=== PATIENT | male | born 1975 | race Caucasian/White ===

== ENCOUNTER 2022-01-18 18:24 | Emergency (ER) | payer SELFPAY ==
[2022-01-18 18:57] VITALS: BP 152/87; PULSE 80; RESP 18; TEMP 36.4; O2SAT 100
[2022-01-18 19:10] LABS: Basophils Absolute Auto 0.1 K/mm3 (0.0-0.1); Basophils Percent Auto 1.1 % (0.2-1.2); Eosinophils Absolute Auto 0.9 K/mm3 (0-0.3); Eosinophils Percent Auto 7.5 % (0-4.4); Hematocrit 42.5 % (42.0-52.0); Hemoglobin 14.6 g/dL (14.0-18.0); Immature Granulocyte Absolute 0.03 K/mm3 (0.00-0.031); Immature Granulocyte Percent A 0.2 % (0-0.5); Lymphocytes Absolute Auto 2.25 K/mm3 (0.9-3.2); Lymphocytes Percent Auto 18.7 % (18.3-44.2); Mean Corpuscular HGB Conc 34.4 g/dl (32-36); Mean Corpuscular Hemoglobin 31.7 pg (26-34); Mean Corpuscular Volume 92.2 fl (80-100); Mean Platelet Volume 9.4 fl (7.4-10.4); Monocytes Absolute Auto 0.6 K/mm3 (0.1-0.6); Monocytes Percent Auto 4.7 % (2.6-8.5); Neutrophils Absolute Auto 8.2 K/mm3 (1.3-6.7); Neutrophils Percent Auto 67.8 % (45.5-73.1); Platelet Count Result 375 k/mm3 (150-375); Red Blood Count 4.61 M/mm3 (4.6-6.20); Red Cell Distribution Width 11.7 % (11.5-14.5); White Blood Count 12.1 K/mm3 (4.5-10.0)
[2022-01-18 19:18] LABS: Add Urine Microscopic? YES; Appearance Urine Cloudy (Clear); Bilirubin Urine Negative (Negative); Blood Urine 3+ (Negative); Calcium Oxalate Crystals Urine Present /hpf; Color Urine Yellow (Yellow); Glucose Urine UA Negative (Negative); Ketones Urine Negative (Negative); Leukocyte Esterase Ur Negative LEU/UL (Negative); Mucus Urine Rare /lpf; Nitrate Urine Negative (Negative); Protein Urine 1+ mg/dL (Negative); RBC Urine >75 /hpf (0-2); Specific Grav Ur 1.024 (1.001-1.035); Squamous Epithelial Cell Urine Rare /hpf (Few); Urobilinogen Urine Negative mg/dL (<2.0); WBC Urine 0-3 /hpf
[2022-01-18 19:25] LABS: Alanine Aminotransferase 58 U/L (6-50); Albumin Level 5.1 g/dL (3.5-5.1); Alkaline Phosphatase 43 U/L (38-126); Anion Gap 13 mmol/L (8-16); Aspartate Amino Transferase 42 U/L (17-59); Bilirubin,Total 0.4 mg/dL (0.2-1.3); Blood Urea Nitrogen 11 mg/dL (9-20); Calcium 9.5 mg/dL (8.4-10.2); Carbon Dioxide 22 mmol/L (22-30); Chloride 104 mmol/L (98-107); Estimated CRCL calculation 68 ml/min; Estimated Glomerular Filt Rate > 60; Glucose 156 mg/dL (65-110); Potassium 4.3 mmol/L (3.4-5.0); Sodium 139 mmol/L (137-145)
--- NOTE | 2022-01-18 20:37 | PC.NURSE ---
Patient walked out stating I don't want to wait any longer, I am just going to another hospital.
== END 2022-01-18 20:37 | disposition left against medical advice (07) ==
PROVIDERS: Emergency Provider Emergency Medicine
DX: R10.9 Unspecified abdominal pain (principal)
CPT/HCPCS: 36415; 80053; 81001; 85025; 99199

== ENCOUNTER 2023-01-31 15:23 | Emergency (ER) | payer SELFPAY ==
--- NOTE | ~2023-01-31 | XR_ITS ---
EXAMINATION: XR chest 1V portable Exam Date/Time: 01/31/2023 16:20 CDT HISTORY: Cough X 2 WEEKS Comparison: 07/28/2014. RESULT: Lines, tubes, and devices: None. Lungs and pleura: Clear. Cardiomediastinal silhouette: Stable. Other: No acute osseous or upper abdominal finding. IMPRESSION: No acute cardiopulmonary process. Reviewed, dictated and finalized at location K.
[2023-01-31 15:25] VITALS: BP 160/89; PULSE 86; RESP 16; TEMP 36.6; O2SAT 98
--- NOTE | 2023-01-31 15:57 | ED.GENADULT ---
HPI - General Adult General Chief complaint: Unspecified Stated complaint: COUGH,RASH Time Seen by Provider: 01/31/23 15:45 Source: patient and family Mode of arrival: ambulatory Limitations: no limitations History of Present Illness HPI narrative: 47 years old white male came to the emergency room by private car with his complaining of productive cough of clear sputum for the last 2 weeks. His 2 kids had similar symptoms earlier. Had a negative COVID test yesterday. Patient also complaining of rash on most of his body for the last 24 hours with severe itching. He denies having similar rash or history of allergy in the past. Related Data Allergies Allergy/AdvReac Type Severity Reaction Status Date / Time No Known Allergies Allergy Verified 07/28/14 13:15 Review of Systems Review of Systems: All systems reviewed & are unremarkable except as noted in HPI and below Exam Narrative: General appearance: Well-developed, well-nourished restless because of itching all over Skin: Large area of skin rash tiny red, purple, darker brown spots on the chest abdomen upper extremity and lower extremities and the back. With severe itching. Head: Normocephalic, nontraumatic Eyes: Clear conjunctiva ENT: Oropharynx normal, ears normal, nose normal Neck: Supple, nontender Chest and respiratory: Airway patent, no respiratory distress, no accessory muscle use Heart: Regular rate/rhythm Abdomen: Soft, nontender, no organomegaly, quiet bowel sounds Vascular: Normal peripheral pulses, normal capillary refill. Musculoskeletal: Normal range of motion, nontender back Neurologic: Alert and oriented ?3, [employer] is normal as tested, no gross motor deficit Course Reevaluation(s) Reevaluation #1: Itching improved with epinephrine and prednisone. Date: 01/31/23 Vital Signs Vital signs: Vital Signs Temperature 36.6 C 01/31/23 15:25 Pulse Rate 86 01/31/23 15:25 Respiratory Rate 16 01/31/23 15:25 Blood Pressure 160/89 H 01/31/23 15:25 Pulse Oximetry 98 01/31/23 15:25 Temperature 36.6 C 01/31/23 15:25 Pulse Rate 88 01/31/23 18:00 Respiratory Rate 16 01/31/23 15:25 Blood Pressure 132/79 01/31/23 18:00 Pulse Oximetry 97 01/31/23 18:00 Medical Decision Making [facility] Narrative Medical decision making narrative: Patient been having upper respiratory symptoms for the last 2 weeks, tested negative for COVID yesterday. Patient presented with coughing and rash all over. Rash is nonspecific which could be secondary to COVID. Patient did not check for COVID early. My suspicion that patient had COVID early and the test is negative now. COVID test and chest x-ray today came back within normal limits. Patient received epinephrine, prednisone prior to discharge for the rash. Discharged on doxycycline for possible secondary bacterial infection patient been sick for 2 weeks. Tessalon and prednisone and Zyrtec. Differential Diagnosis Differential Diagnosis: Secondary bacterial infection on top of respiratory viral infection Medical Records Medical records reviewed: Yes I reviewed the external patient's medical records. Vital Signs Vital Signs: Vital Signs Temperature 36.6 C 01/31/23 15:25 Pulse Rate 86 01/31/23 15:25 Respiratory Rate 16 01/31/23 15:25 Blood Pressure 160/89 H 01/31/23 15:25 Pulse Oximetry 98 01/31/23 15:25 Temperature 36.6 C 01/31/23 15:25 Pulse Rate 88 01/31/23 18:00 Respiratory Rate 16 01/31/23 15:25 Blood Pressure 132/79 01/31/23 18:00 Pulse Oximetry 97 01/31/23 18:00 Lab Data Lab results reviewed: Yes I reviewed the patient's lab results. Labs: Lab Results 01/31
[2023-01-31 16:10] LABS: Influenza A QL RT-PCR Negative (Negative); Influenza B QL RT-PCR Negative (Negative); RSV RNA, RT-PCR Negative (Negative); SARS-CoV-2 RNA PCR Negative (Negative)
[2023-01-31] MEDS: EPINEPHrine HCL INJ 1 MG/ML AMPUL 0.3 MG IM (17:28)
[2023-01-31] MEDS: predniSONE 20 MG TABLET 60 MG PO (17:28)
[2023-01-31] MEDS: LORATADINE 10 MG TABLET PO (17:28)
[2023-01-31 18:00] VITALS: BP 132/79; PULSE 88; O2SAT 97
== END 2023-01-31 18:01 | disposition home or self-care (01) ==
PROVIDERS: Preventive Medicine Aerospace Medicine; Emergency Provider Emergency Medicine; PCP Nurse Practitioner
DX: J40 Bronchitis, not specified as acute or chronic (principal); R21 Rash and other nonspecific skin eruption; Z20.822 Contact with and (suspected) exposure to COVID-19
CPT/HCPCS: 71045; 87637; 96372; 99283; A9270; J0171; J7512